=== PATIENT | female | born 1985 | race Caucasian/White ===

== ENCOUNTER 2018-04-24 19:30 | Emergency (ER) | payer MEDICAID ==
[~2018-04-24] VITALS: Ht 162.6 cm; Wt 99.8 kg
--- NOTE | 2018-04-24 19:30 | NUR ---
PT BBSELF FROM HOME C/C SLURRED SPEECH, DIFFICULTY SWALLOWING, DECREASED, SENSATIONS ON L SIDE, DIFFICULTY MOVING R SIDE OF FACE. L SIDED HEADACHE. NAD NOTED, VSS, RESP EVEN AND UNLABORED, PT WAS PUT ON MONITOR, MD AT .
[2018-04-24] MEDS ORDERED: GADOVERSETAMIDE 5 MMOL/10 ML VIAL IJ ONE (19:38)
--- NOTE | 2018-04-24 20:34 | NUR ---
CALLED DR JOHNSON[facility]SW[facility], LEFT A VOICEMAIL.
--- NOTE | 2018-04-24 20:54 | NUR ---
CALL MADE TO STEPHANIE BILLINGS NEUROLOGIST; MESSAGE LEFT AT [phone]
[2018-04-24 21:04] LABS: BASOPHILS % (AUTO) 0.4 % (0.0-2.0); EOSINOPHILS % (AUTO) 2.8 % (0.0-6.0); HEMATOCRIT 41 % (33-45); HEMOGLOBIN 14.1 g/dL (11.5-14.8); LYMPHOCYTES # (AUTO) 2.6 /CMM (0.8-4.8); LYMPHOCYTES % (AUTO) 24.7 % (20.0-44.0); MEAN CORPUSCULAR HGB CONC 34 g/dl (31.0-36.0); MEAN CORPUSCULAR VOLUME 88 fL (82-100); MONOCYTES # (AUTO) 0.6 /CMM (0.1-1.30); MONOCYTES % (AUTO) 5.6 % (2.0-12.0); NEUTROPHILS # (AUTO) 7.1 /CMM (1.8-8.9); NEUTROPHILS % (AUTO) 66.5 % (43.0-81.0); PLATELET COUNT (AUTO) 355 /CMM (150-450); RDW COEFFICIENT OF VARIATION 13.1 (11.5-15.0); RED BLOOD CELL COUNT(AUTO) 4.69 MIL/uL (4.0-5.2); WHITE BLOOD COUNT (AUTO) 10.6 K/uL (4.3-11.0)
--- NOTE | 2018-04-24 21:13 | NUR ---
TEXTED DR. LIRIANO FOR MRI APPROVAL.
[2018-04-24 21:18] LABS: CALCIUM, SERUM 8.8 mg/dL (8.5-10.1); CREATININE 0.8 mg/dL (0.6-1.3); POTASSIUM 3.5 mmol/L (3.5-5.1)
--- NOTE | 2018-04-24 21:18 | NUR ---
GINNER HELPER ETA 40MIN.
--- NOTE | 2018-04-24 21:22 | NUR ---
ELECTRICIAN RECTIFIER MAINTENANCE ETA 40 MINS
--- NOTE | 2018-04-24 23:22 | NUR ---
PT BACK FROM MRI
--- NOTE | 2018-04-24 23:29 | NUR ---
REPORT GIVEN TO FAIZAN SYED RN
--- NOTE | 2018-04-24 23:37 | NUR ---
INITIAL ASSESSMENT DONE AFTER RETURN FROM MRI. AMBULATED TO RESTROOM WITH STEADY GAIT. DENIES ANY NEW OR WORSENING SX'S AT THIS TIME. RESP EVEN AND UNLABORED. PLACED BACK ON MONITOR. PENDING MRI RESULTS.
--- NOTE | 2018-04-25 00:05 | NUR ---
Patient discharged to home in stable condition by Dr. June after MRI results. Written and verbal after care instructions given. Patient verbalizes understanding of instruction. IV removed. Catheter intact and site benign. Pressure and 4x4 applied to site. No bleeding noted. Ambulatory with a steady gait accompanied by family.
[2018-04-25 00:07] VITALS: BP 122/82
== END 2018-04-25 00:08 | disposition home or self-care (01) ==
LOC: ER 19:37
DX: G51.9 Disorder of facial nerve, unspecified (principal); G62.89 Other specified polyneuropathies
CPT/HCPCS: 36415; 70553-TC; 80048-TC; 82962-TC; 84703-TC; 85025-TC; A4606; A9579; Z7610

== ENCOUNTER 2019-03-05 15:18 | Emergency (ER) | payer MEDICAID ==
[~2019-03-05] VITALS: Ht 162.6 cm; Wt 99.8 kg
[2019-03-05 15:25] VITALS: BP 127/57
== END 2019-03-05 16:00 | disposition home or self-care (01) ==
LOC: ER 15:21
DX: S06.0X0A Concussion without loss of consciousness, initial encounter (principal); M54.5 Low back pain; M54.2 Cervicalgia; V49.49XA Driver injured in collision with other motor vehicles in traffic accident, initial encounter; Y93.89 Activity, other specified; Y92.413 State road as the place of occurrence of the external cause; Y99.8 Other external cause status
CPT/HCPCS: Z7502

== ENCOUNTER 2019-06-29 22:18 | Emergency (ER) | payer MEDICAID ==
[~2019-06-29] VITALS: Ht 162.6 cm; Wt 107.5 kg
[2019-06-29 22:33] VITALS: BP 144/99
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
--- NOTE | 2019-06-30 00:06 | NUR ---
Patient discharged to home in stable condition. Written and verbal after care instructions given. Patient verbalizes understanding of instruction. Pt ambulatory with a steady gait
== END 2019-06-30 00:07 | disposition home or self-care (01) ==
LOC: ER 22:18
DX: S16.1XXA Strain of muscle, fascia and tendon at neck level, initial encounter (principal); S39.012A Strain of muscle, fascia and tendon of lower back, initial encounter; V49.49XA Driver injured in collision with other motor vehicles in traffic accident, initial encounter; Y93.89 Activity, other specified; Y92.411 Interstate highway as the place of occurrence of the external cause; Y99.8 Other external cause status

== ENCOUNTER 2020-11-23 15:58 | Emergency (ER) | payer MEDICAID, OTHER ==
[~2020-11-23] VITALS: Ht 162.6 cm; Wt 99.8 kg
--- NOTE | 2020-11-23 16:21 | NUR ---
PT AMBULATORY TO. ROOMED. C/O INTERMITTENT CHEST PAIN X 2 WEEKS BUT GOT WORST SINCE LAST NIGHT. PT DENIES ANY FLU LIKE SYMPTOMS AT THIS TIME. STABLE VITALS, AFEBRILE. AWAITNG MD VILLEGAS
--- NOTE | 2020-11-23 16:44 | NUR ---
STEVE ROME AT BEDSIDE FOR EVAL.
--- NOTE | 2020-11-23 16:50 | NUR ---
PAPER AND PRINTS RESTORER AT BEDSIDE FOR BLOOD DRAW.
[2020-11-23 16:59] LABS: BASOPHILS # (AUTO) 0.1 /CMM (0.0-0.2); BASOPHILS % (AUTO) 0.7 % (0.0-2.0); EOSINOPHILS % (AUTO) 2.3 % (0.0-6.0); HEMATOCRIT 40 % (33-45); HEMOGLOBIN 13.5 g/dL (11.5-14.8); LYMPHOCYTES # (AUTO) 2.6 /CMM (0.8-4.8); LYMPHOCYTES % (AUTO) 28.2 % (20.0-44.0); MEAN CORPUSCULAR HGB CONC 34 g/dl (31.0-36.0); MEAN CORPUSCULAR VOLUME 89 fL (82-100); MONOCYTES # (AUTO) 0.4 /CMM (0.1-1.30); MONOCYTES % (AUTO) 4.5 % (2.0-12.0); NEUTROPHILS % (AUTO) 64.3 % (43.0-81.0); PLATELET COUNT (AUTO) 277 /CMM (150-450); RED BLOOD CELL COUNT(AUTO) 4.55 MIL/uL (4.0-5.2); WHITE BLOOD COUNT (AUTO) 9.3 K/uL (4.3-11.0)
--- NOTE | 2020-11-23 17:20 | NUR ---
PT REFUSING COVID19 SWAB. STEVE ROME AWARE.
[2020-11-23 17:26] LABS: CALCIUM, SERUM 8.6 mg/dL (8.5-10.1); CARBON DIOXIDE 28 mmol/L (21-32); CHLORIDE 103 mmol/L (98-107); CREATININE 0.7 mg/dL (0.6-1.3); GLUCOSE 121 mg/dL (74-106); POTASSIUM 3.9 mmol/L (3.5-5.1); SODIUM SERUM 140 mmol/L (136-145); UREA NITROGEN, BLOOD 16 mg/dL (7-18)
[2020-11-23 17:32] LABS: ALANINE AMINOTRANSFERASE 37 U/L (12-78); ALBUMIN 3.5 g/dL (3.4-5.0); ALKALINE PHOSPHATASE 87 U/L (46-116); ASPARTATE AMINOTRANSFERASE 18 U/L (15-37); BILIRUBIN,DIRECT 0.1 mg/dL (0.0-0.2); BILIRUBIN,TOTAL 0.3 mg/dL (0.2-1.0); TOTAL PROTEIN, SERUM 7.6 g/dL (6.4-8.2)
[2020-11-23 18:23] VITALS: BP 144/76
--- NOTE | 2020-11-23 18:23 | NUR ---
Patient discharged to home in stable condition. Written and verbal after care instructions given. Patient verbalizes understanding of instruction.
== END 2020-11-23 18:24 | disposition home or self-care (01) ==
LOC: ER 15:58
DX: R07.89 Other chest pain (principal)
CPT/HCPCS: 36415; 71045-TC; 80048-TC; 80076-TC; 84484-TC; 84703-TC; 85025-TC

== ENCOUNTER 2021-06-13 21:33 | Emergency (ER) | payer OTHER ==
[~2021-06-13] VITALS: Ht 162.6 cm; Wt 99.8 kg
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
[2021-06-13 22:50] VITALS: BP 153/96
--- NOTE | 2021-06-13 23:25 | NUR ---
PATIENT BIBSELF WITH C/O RECURRING HEADACHE, NAUSEA, LOOSING VOICE AND FOOD POISONING, FOR THE PAST MONTH. PATIENT IS A/O X 4, RR EVEN AND UNLABORED NO SIGNS OF SOB NOTED. PATIENT CONNCETED TO CARDAIC MONITOR AND POX.
--- NOTE | 2021-06-14 00:05 | NUR ---
PATIENT TAKEN TO CT
--- NOTE | 2021-06-14 01:07 | NUR ---
Patient discharged to home in stable condition. Written and verbal after care instructions given. Patient verbalizes understanding of instruction.
== END 2021-06-14 01:09 | disposition home or self-care (01) ==
LOC: ER 21:39
DX: R51.9 Headache, unspecified (principal)
CPT/HCPCS: 70450-TC; 84703-TC

== ENCOUNTER 2021-06-22 13:15 | Emergency (ER) | payer OTHER ==
[~2021-06-22] VITALS: Ht 160 cm; Wt 90.7 kg
[2021-06-22 13:38] VITALS: BP 132/81
[2021-06-22] MEDS ORDERED: ACETAMINOPHEN 325 MG TABLET PO ONE (14:30)
--- NOTE | 2021-06-22 14:41 | NUR ---
THE PATIENT BIBS FOR C/O HEADACHE, FEVER CHILLS, AND BODY ACHE X 6 DAYS. RATES HEADACHE AND BODY ACHES 5/10. IN ROOM AIR AND DENIES SOB. RESPIRATION REGULAR AND UNLABORED. WILL CONTINUE TO MONITOR THE PATIENT.
[2021-06-22] MEDS ORDERED: ACETAMINOPHEN 325 MG TABLET ONE (14:43)
[2021-06-22] MEDS ORDERED: IBUP-1955 PO (15:14)
[2021-06-22] MEDS ORDERED: ACET-2605 PO (15:14)
--- NOTE | 2021-06-22 16:18 | NUR ---
Patient discharged to home in stable condition. Written and verbal after care instructions given. Patient verbalizes understanding of instruction.
== END 2021-06-22 16:18 | disposition home or self-care (01) ==
LOC: ER 13:32
DX: R50.9 Fever, unspecified (principal); R51.9 Headache, unspecified; M79.18 Myalgia, other site; Z20.822 Contact with and (suspected) exposure to COVID-19

== ENCOUNTER 2021-11-02 13:52 | Emergency (ER) | payer OTHER ==
[~2021-11-02] VITALS: Ht 160 cm; Wt 109.3 kg
[~2021-11-02 13:52] MED LIST: ACET-2605 PO; IBUP-1955 PO
--- NOTE | 2021-11-02 13:54 | NUR ---
CALLED TO TRIAGE,NO ANSWER
--- NOTE | 2021-11-02 14:07 | NUR ---
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 PT STATED THAT SHE FEELS LIGHTHEADED. VITAL SIGNS WITHIN NORMAL LIMITS. BREATHING IS REGULAR AND UNLABORED.
--- NOTE | 2021-11-02 14:13 | NUR ---
CALLED POISON CONTROL [facility] [phone]. BASED ON AMOUNT INGESTED, NO REAL OBSERVATION REQUIRED. SIMILAR TO ALCOHOL INTOXICATION, VERY LITTLE SOAP.
[2021-11-02 14:53] LABS: CALCIUM, SERUM 8.8 mg/dL (8.5-10.1); CREATININE 0.7 mg/dL (0.6-1.3)
[2021-11-02 14:59] LABS: BASOPHILS # (AUTO) 0.1 K/uL (0.0-0.2); BASOPHILS % (AUTO) 0.6 % (0.0-2.0); EOSINOPHILS % (AUTO) 1.9 % (0.0-6.0); HEMATOCRIT 42 % (33-45); HEMOGLOBIN 14.1 g/dL (11.5-14.8); LYMPHOCYTES # (AUTO) 2.2 K/uL (0.8-4.8); LYMPHOCYTES % (AUTO) 23.2 % (20.0-44.0); MEAN CORPUSCULAR HGB CONC 34 g/dl (31.0-36.0); MEAN CORPUSCULAR VOLUME 88 fL (82-100); MONOCYTES # (AUTO) 0.5 K/uL (0.1-1.30); MONOCYTES % (AUTO) 5.4 % (2.0-12.0); NEUTROPHILS # (AUTO) 6.6 K/uL (1.8-8.9); NEUTROPHILS % (AUTO) 68.9 % (43.0-81.0); PLATELET COUNT (AUTO) 350 K/uL (150-450); RED BLOOD CELL COUNT(AUTO) 4.78 MIL/uL (4.0-5.2); WHITE BLOOD COUNT (AUTO) 9.6 K/uL (4.3-11.0)
[2021-11-02 15:30] VITALS: BP 121/92
--- NOTE | 2021-11-02 15:30 | NUR ---
Patient discharged to home in stable condition. Written and verbal after care instructions given. Patient verbalizes understanding of instruction.IV removed. Catheter intact and site benign. Pressure and 4x4 applied to site. No bleeding noted.
== END 2021-11-02 15:31 | disposition home or self-care (01) ==
LOC: ER 14:02
DX: T49.0X1A Poisoning by local antifungal, anti-infective and anti-inflammatory drugs, accidental (unintentional), initial encounter (principal); Y92.89 Other specified places as the place of occurrence of the external cause
CPT/HCPCS: 36415; 80048-TC; 85025-TC

== ENCOUNTER 2022-11-26 00:37 | Emergency (ER) | payer OTHER ==
[~2022-11-26] VITALS: Ht 165.1 cm; Wt 104.3 kg
[2022-11-26 01:16] VITALS: BP 137/88
[2022-11-26 02:41] LABS: BASOPHILS % (AUTO) 0.3 % (0.0-2.0); EOSINOPHILS % (AUTO) 2.1 % (0.0-6.0); HEMATOCRIT 41 % (33-45); HEMOGLOBIN 13.4 g/dL (11.5-14.8); LYMPHOCYTES # (AUTO) 3.3 K/uL (0.8-4.8); LYMPHOCYTES % (AUTO) 21.9 % (20.0-44.0); MEAN CORPUSCULAR HGB CONC 33 g/dl (31.0-36.0); MEAN CORPUSCULAR VOLUME 86 fL (82-100); MONOCYTES # (AUTO) 1.1 K/uL (0.1-1.30); MONOCYTES % (AUTO) 7.2 % (2.0-12.0); NEUTROPHILS # (AUTO) 10.4 K/uL (1.8-8.9); NEUTROPHILS % (AUTO) 68.5 % (43.0-81.0); PLATELET COUNT (AUTO) 310 K/uL (150-450); RED BLOOD CELL COUNT(AUTO) 4.74 MIL/uL (4.0-5.2); WHITE BLOOD COUNT (AUTO) 15.2 K/uL (4.3-11.0)
[2022-11-26 02:55] LABS: CALCIUM, SERUM 8.9 mg/dL (8.5-10.1); CREATININE 0.8 mg/dL (0.6-1.3); MAGNESIUM 2.4 mg/dL (1.8-2.4); POTASSIUM 4.2 mmol/L (3.5-5.1)
[2022-11-26 03:07] LABS: THYROID STIMULATING HORMONE 3.597 uIU/mL (0.358-3.74)
--- NOTE | 2022-11-26 03:56 | NUR ---
pt ok to discharge per dr Jean.
== END 2022-11-26 04:08 | disposition home or self-care (01) ==
LOC: ER 00:40
DX: R00.2 Palpitations (principal); Z86.16 Personal history of COVID-19; Z60.2 Problems related to living alone; Z79.899 Other long term (current) drug therapy
CPT/HCPCS: 36415; 80048-TC; 83735-TC; 84443-TC; 84484-TC; 85025-TC

== ENCOUNTER 2024-02-06 02:27 | Emergency (ER) | payer OTHER ==
[~2024-02-06] VITALS: Ht 165.1 cm; Wt 104.3 kg
[2024-02-06 02:49] VITALS: TEMP 98.5
[2024-02-06 04:24] LABS: BASOPHILS # (AUTO) 0.1 K/uL (0.0-0.2); BASOPHILS % (AUTO) 0.4 % (0.0-2.0); EOSINOPHILS # (AUTO) 0.3 K/uL (0.0-0.7); HEMATOCRIT 41 % (33-45); HEMOGLOBIN 13.3 g/dL (11.5-14.8); LYMPHOCYTES # (AUTO) 3.7 K/uL (0.8-4.8); LYMPHOCYTES % (AUTO) 22.3 % (20.0-44.0); MEAN CORPUSCULAR HEMOGLOBIN 28 PG (26.0-33.0); MEAN CORPUSCULAR HGB CONC 33 g/dl (31.0-36.0); MEAN CORPUSCULAR VOLUME 85 fL (82-100); MONOCYTES % (AUTO) 6.3 % (2.0-12.0); NEUTROPHILS # (AUTO) 11.6 K/uL (1.8-8.9); PLATELET COUNT (AUTO) 337 K/uL (150-450); RED BLOOD CELL COUNT(AUTO) 4.79 MIL/uL (4.0-5.2); RED CELL DISTRIBUTION WIDTH 14.5 % (11.5-15.0); WHITE BLOOD COUNT (AUTO) 16.8 K/uL (4.3-11.0)
[2024-02-06 04:29] LABS: APPEARANCE,URINE CLEAR (CLEAR); BILIRUBIN,URINE NEGATIVE (NEGATIVE); BLOOD, URINE NEGATIVE Ery/uL (NEGATIVE); COLOR,URINE YELLOW (YELLOW); KETONES,URINE NEGATIVE (NEGATIVE); LEUKOCYTE ESTERASE ,URINE NEGATIVE (NEGATIVE); NITRITE, URINE NEGATIVE (NEGATIVE); PREGNANCY TEST URINE QUAL NEGATIVE (NEGATIVE); PROTEIN,URINE NEGATIVE (NEGATIVE); UGLUCOSE NEGATIVE (NEGATIVE); UROBILINOGEN,URINE 0.2 EU/dL (0.2)
[2024-02-06 04:33] LABS: CALCIUM, SERUM 9.1 mg/dL (8.5-10.1); CREATININE 0.6 mg/dL (0.6-1.3); POTASSIUM 3.3 mmol/L (3.5-5.1)
[2024-02-06 04:41] LABS: AMPHETAMINE, URINE NEGATIVE (NEGATIVE); BARBITURATE, URINE NEGATIVE (NEGATIVE); BENZODIAZEPINE, URINE NEGATIVE (NEGATIVE); CANNABINOID, URINE NEGATIVE (NEGATIVE); COCCAINE, URINE NEGATIVE (NEGATIVE); OPIATE, URINE NEGATIVE (NEGATIVE); PHENCYCLIDINE SCREEN,URINE NEGATIVE (NEGATIVE)
[2024-02-06 04:48] LABS: ALBUMIN 3.3 g/dL (3.4-5.0); BILIRUBIN,TOTAL 0.3 mg/dL (0.2-1.0); TOTAL PROTEIN, SERUM 7.7 g/dL (6.4-8.2)
[2024-02-06 04:53] LABS: THYROID STIMULATING HORMONE 2.948 uIU/mL (0.358-3.74)
[2024-02-06] MEDS ORDERED: POTASSIUM CHLORIDE 20 MEQ TAB.PRT.SR PO ONE (05:31)
[2024-02-06] MEDS: POTASSIUM CHLORIDE 20 MEQ TAB.PRT.SR PO ONE (05:39)
[2024-02-06 06:18] VITALS: BP 134/85; O2SAT 97
[2024-02-06 19:14] LABS: HIV-1 p24 ANTIGEN NON REACTIVE (NONREACTIVE); HIV-1/2 ANTIBODY NON REACTIVE (NONREACTIVE)
[2024-02-07 06:10] LABS: RAPID PLASMA REAGIN QUAL. Non Reactive (Non Reactive)
[2024-02-09 04:06] LABS: CHLAMYDIA TRACHOMATIS NAA Negative (Negative); NEISSERIA GONORRHOEAE NAA Negative (Negative)
== END 2024-02-06 06:19 | disposition home or self-care (01) ==
LOC: ER 02:42
DX: R20.2 Paresthesia of skin (principal); Z86.16 Personal history of COVID-19; Z60.2 Problems related to living alone
CPT/HCPCS: 36415; 70450-TC; 72125-TC; 80053-TC; 83880; 84443-TC; 84484-TC; 84703-TC; 85025-TC; 86592; 86593; 87491; 87591; 87806

== ENCOUNTER 2024-09-03 19:47 | Emergency (ER) | payer OTHER ==
[~2024-09-03] VITALS: Ht 167.6 cm; Wt 95.3 kg
[2024-09-03 20:54] VITALS: BP 135/79; TEMP 98.5; O2SAT 99
[2024-09-03] MEDS: ONDANSETRON 4 MG TAB.RAPDIS SL ONE (21:00)
[2024-09-03] MEDS: IBUPROFEN 600 MG TABLET PO ONE (21:00)
[2024-09-03] MEDS ORDERED: IBUPROFEN 600 MG TABLET ONE (21:10)
[2024-09-03] MEDS ORDERED: ONDANSETRON 4 MG TAB.RAPDIS ONE (21:11)
[2024-09-03] MEDS ORDERED: ONDA4TAB11 PO (21:29)
[2024-09-03] MEDS ORDERED: DICY10CA37 PO (21:29)
[2024-09-03 22:24] LABS: APPEARANCE,URINE Clear (CLEAR); BILIRUBIN,URINE Negative (NEGATIVE); BLOOD, URINE Trace-lysed Ery/uL (NEGATIVE); COLOR,URINE LIGHT YELLOW (YELLOW); KETONES,URINE Negative (NEGATIVE); LEUKOCYTE ESTERASE ,URINE Negative (NEGATIVE); NITRITE, URINE Negative (NEGATIVE); PH,URINE 6.5 (5.0-8.0); PROTEIN,URINE Negative (NEGATIVE); UGLUCOSE Negative (NEGATIVE); UROBILINOGEN,URINE 0.2 EU/dL (0.2)
[2024-09-03 22:27] LABS: PREGNANCY TEST URINE QUAL NEGATIVE (NEGATIVE)
[2024-09-03 23:05] LABS: ADD URINE CULTURE YES; BACTERIA,URINE Few /HPF (None Seen); RBC,URINE 0-2 /HPF (0-2); SQUAMOUS EPITHELIAL CELL,UR Few /HPF (None Seen)
== END 2024-09-03 23:20 | disposition home or self-care (01) ==
LOC: ER 19:50
DX: R11.2 Nausea with vomiting, unspecified (principal); R19.7 Diarrhea, unspecified; R10.2 Pelvic and perineal pain; Z86.16 Personal history of COVID-19; Z79.899 Other long term (current) drug therapy; Z60.2 Problems related to living alone
CPT/HCPCS: 99283; 87086; 84703; 81001; Q0162

== ENCOUNTER 2024-09-30 18:33 | Emergency (ER) | payer OTHER ==
[~2024-09-30] VITALS: Ht 165.1 cm; Wt 99.8 kg
[~2024-09-30 18:33] MED LIST changes: +DICY10CA37 PO; +ONDA4TAB11 PO
[2024-09-30 18:54] VITALS: BP 139/89; TEMP 98.6; O2SAT 100
[2024-09-30] MEDS ORDERED: GUAI120L56 PO (19:39)
== END 2024-09-30 19:45 | disposition home or self-care (01) ==
LOC: ER 18:37
DX: J06.9 Acute upper respiratory infection, unspecified (principal)

== ENCOUNTER 2025-03-02 23:16 | Emergency (ER) | payer OTHER ==
[~2025-03-02] VITALS: Ht 165.1 cm; Wt 99.8 kg
[~2025-03-02 23:16] MED LIST changes: +GUAI120L56 PO
[2025-03-02] MEDS ORDERED: GUAI400T93 PO (23:59)
[2025-03-02] MEDS ORDERED: BENZ-13 PO (23:59)
[2025-03-03 00:09] VITALS: BP 157/92; TEMP 98.4; O2SAT 99
== END 2025-03-03 00:09 | disposition home or self-care (01) ==
LOC: ER 23:16
DX: J06.9 Acute upper respiratory infection, unspecified (principal); B97.89 Other viral agents as the cause of diseases classified elsewhere; I10 Essential (primary) hypertension; Z86.16 Personal history of COVID-19

== ENCOUNTER 2025-06-17 22:51 | Emergency (ER) | payer OTHER ==
[~2025-06-17] VITALS: Ht 162.6 cm; Wt 113.4 kg
[~2025-06-17 22:51] MED LIST changes: +BENZ-13 PO; +GUAI400T93 PO
[2025-06-17 23:20] VITALS: TEMP 98.2
[2025-06-17] MEDS: IV NS 0.9% 1,000 ML BAG IV ONE (23:54)
[2025-06-18] LABS: PLATELET COUNT (AUTO) 328 K/uL (150-450); RED BLOOD CELL COUNT(AUTO) 4.86 MIL/uL (4.0-5.2); RED CELL DISTRIBUTION WIDTH 14.3 % (11.5-15.0); WHITE BLOOD COUNT (AUTO) 14.5 K/uL (4.3-11.0)
[2025-06-18 00:09] LABS: APPEARANCE,URINE CLEAR (CLEAR); BLOOD, URINE NEGATIVE Ery/uL (NEGATIVE); LEUKOCYTE ESTERASE ,URINE 1+ (NEGATIVE); NITRITE, URINE NEGATIVE (NEGATIVE); UGLUCOSE NEGATIVE (NEGATIVE)
[2025-06-18 00:09] LABS: CALCIUM, SERUM 8.7 mg/dL (8.5-10.1); CREATININE 0.6 mg/dL (0.6-1.3); SODIUM SERUM 139.0 mmol/L (136-145); UREA NITROGEN, BLOOD 14.0 mg/dL (7-18)
[2025-06-18 00:11] LABS: ADD URINE CULTURE YES; PREGNANCY TEST URINE QUAL NEGATIVE (NEGATIVE); SQUAMOUS EPITHELIAL CELL,UR Rare /HPF (None Seen)
[2025-06-18 00:15] LABS: ASPARTATE AMINOTRANSFERASE 16.0 U/L (15-37); TOTAL PROTEIN, SERUM 7.4 g/dL (6.4-8.2)
[2025-06-18 01:26] VITALS: BP 128/66; O2SAT 98
== END 2025-06-18 01:26 | disposition home or self-care (01) ==
LOC: ER 23:01
DX: R20.2 Paresthesia of skin (principal); E86.0 Dehydration; R06.02 Shortness of breath; R20.0 Anesthesia of skin
CPT/HCPCS: 99285; 96360; 71045; 93005; 85025; 83735; 84703; 81001; 36415; 84443; 80053; J7030; 87086-TC